=== PATIENT | male | born 2000 | race Caucasian/White ===

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

== ENCOUNTER 2020-11-26 13:55 | Emergency (ER) | payer OTHER ==
--- NOTE | 2020-11-26 15:33 | EDM.PDOC ---
ED HPI GENERAL MEDICAL PROBLEM - General Chief Complaint: Skin Complaint Stated Complaint: LT AMANDA INGROWN FINGERNAIL Time Seen by Provider: 11/26/20 14:19 Source of Information: Reports: Patient History Limitations: Reports: No Limitations - History of Present Illness INITIAL COMMENTS - FREE TEXT/NARRATIVE: HISTORY AND PHYSICAL: History of present illness: Patient is a 20-year-old male presenting to the ED with left index finger pain x3 days; worsening today. Patient states his pain is constant, nonradiating, and provoked with pressure. Patient states that he tried poking the area with a needle at home today but was unable to successfully alleviate any of his symptoms. Patient denies any other attempted treatment, including medications or compresses. Patient states that he is fully able to move the finger without difficulty. Patient denies fever, chills, chest pain, shortness of breath, or cough. Denies headache, neck stiff ness, change in vision, syncope, or near syncope. Denies nausea, vomiting, abdominal pain, diarrhea, constipation, or dysuria. Has not noted any blood in urine or stool. Patient has been eating and drinking appropriately. Review of systems: As per history of present illness and below otherwise all systems reviewed and negative. Past medical history: As per history of present illness and as reviewed below otherwise noncontribut ory. Surgical history: As per history of present illness and as reviewed below otherwise noncontributory. Social history: See social history for further information Family history: As per history of present illness and as reviewed below otherwise noncontributory. Physical exam: General: Patient is alert, oriented, and in no acute distress. Patient sitting comfortably on exam table. Vitals stable and reviewed by me. HEENT: Atraumatic, normocephalic, pupils equal and reactive bilaterally, negative for conjunctival pallor or scleral icterus, mucous membranes moist, TMs normal bilaterally, throat clear, neck supple, nontender, trachea midline. No drooling or trismus noted. No meningeal signs. No hot potato voice noted. Lungs: Clear to auscultation, breath sounds equal bilaterally, chest nontender. Heart: S1S2, regular rate and rhythm without overt murmur Abdomen: Soft, nondistended, nontender. Negative for masses or hepatosplenomegaly. Negative for costovertebral tenderness. Pelvis: Stable nontender. Genitourinary: Deferred. Rectal: Deferred. Skin: Intact, warm, dry. No lesions or rashes noted. Extremities: Paronychia of the left second finger nail with white blanching adjacent to the lateral nail of the 2nd digit. The area of edema/erythema does not extend beyond the lateral nailed. Full ROM of the digit without deficit. Radial pulse grossly intact with cap refill < 2 seconds. Otherwise, atraumatic, negative for cords or calf pain. Neurovascular unremarkable. No obvious deformity. Compartments are soft. Neuro: Awake, alert, oriented. Cranial nerves II through XII unremarkable. Cerebellum unremarkable. Motor and sensory unremarkable throughout. Exam nonfocal. Notes: Signs and symptoms that would prompt return to the ED discussed with patient. Discussed importance of follow-up with a primary care provider. Voices understanding and is agreeable to plan of care. Denies any further questions or concerns at this time. Diagnostics: Wound culture Therapeutics: I&D Prescription: Augmentin Impression: Paronychia of left index finger Plan: 1. Take medication as prescribed. You can alternate ibuprofen and Tylenol as directed for pain and discomfort. 2. Continue to monitor for signs of improving versus worsening infection as discussed. Follow-up with your primary care provider as discussed. Return to the ED as needed and as discussed. Definitive disposition and diagnosis as appropriate pending reevaluation and review of above. Left index Pain Score (Numeric/FACES): 7 - Related Data Allergies Allergy/AdvReac Type Severity Reaction Status Date / Time No Known Allergies Allergy Verified 11/26/20 14:17 Home Meds: Home Meds Albuterol [Proventil Neb Soln] 1 ampule NEB Q4HRRT PRN 05/15/14 [History] Cetirizine [ZyrTEC] 1 tab PO DAILY 05/15/14 [History] Ipratropium/Albuterol Sulfate [Combivent Respimat Inhal [place]] 4 gm IH Q4HR PRN #1 aer.w.adap 05/28/18 [Rx] Ipratropium/Albuterol Sulfate [Iprat-Albut 0.5-3(2.5) MG/3 ML] 3 ml IH QID PRN #1 box 05/28/18 [Rx] Amoxicillin/Potassium Clav [Augmentin 875-125 Tablet] 1 each PO BID 7 Days #14 tablet 11/26/20 [Rx] Past Medical History - Past Health History Medical/Surgical History: Denies Medical/Surgical History Respiratory History: Reports: Asthma Psychiatric History: Reports: Anxiety Social & Family History - Family History Family Medical History: No Pertinent Family History - Tobacco Use Tobacco Use Status *Q: Never Tobacco User - Caffeine Use Caffeine Use: Reports: None - Recreational Drug Use Recreational Drug Use: No ED ROS GENERAL - Review of Systems Review Of Systems: Comprehensive ROS is negative, except as noted in HPI. ED EXAM, SKIN/RASH Exam: See Below (see dictation) ED SKIN PROCEDURES - I&D Site: Lateral border of nail on of left second finger Skin Prep: Chlorhexidine (Hibiciens), Isopropyl Alcohol (Alcohol), Sterile Drape Local Anesthesia: Lidocaine: 1% Plain Local Anesthetic Volume: 5cc Area Incised With: 11 Blade Drainage: Purulent, Bloody, Small Amount Probed to Break Up Loculations: No Packed With: None Sterile Dressing: Adhesive Dressing Complications: No Course - Vital Signs Last Recorded V/S: Last Vital Signs Temp 97.5 F 11/26/20 15:54 Pulse 55 L 11/26/20 15:54 Resp 16 11/26/20 15:54 BP 136/70 11/26/20 15:54 Pulse Ox 99 11/26/20 15:54 - Orders/Labs/Meds Orders: Active Orders 24 hr Category Date Time Status CULTURE WOUND [RM] Stat Lab 11/26/20 15:10 Received Meds: Medications Discontinued Medications Generic Name Dose Route Start Last Admin Trade Name Sandra PRN Reason Stop Dose Admin Lidocaine HCl 5 ml 11/26/20 15:03 11/26/20 15:06 Xylocaine-Mpf 1% INJECT 11/26/20 15:04 5 ml ONETIME ONE Administration Departure - Departure Time of Disposition: 15:31 Disposition: Home, Self-Care 01 Clinical Impression: Paronychia - Discharge Information Prescriptions: Amoxicillin/Potassium Clav [Augmentin 875-125 Tablet] 1 each PO BID 7 Days #14 tablet Referrals: Cain Bolton MD [Primary Care Provider] - Forms: ED Department Discharge Additional Instructions: The following information is given to patients seen in the emergency department who are being discharged to home. This information is to outline your options for follow-up care. We provide all patients seen in our emergency department with a follow-up referral. The need for follow-up, as well as the timing and circumstances, are variable depending upon the specifics of your emergency department visit. If you don't have a primary care physician on staff, we will provide you with a referral. We always advise you to contact your personal physician following an emergency department visit to inform them of the circumstance of the visit and for follow-up with them and/or the need for any referrals to a consulting specialist. The emergency department will also refer you to a specialist when appropriate. This referral assures that you have the opportunity for follow-up care with a specialist. All of these measure are taken in an effort to provide you with optimal care, which includes your follow-up. Under all circumstances we always encourage you to contact your private physician who remains a resource for coordinating your care. When calling for follow-up care, please make the office aware that this follow-up is from your recent emergency room visit. If for any reason you are refused follow-up, please contact the [facility] Emergency Department at and asked to speak to the emergency department charge nurse. [facility] [address] [place] [address] [place] [address] 1. Take medication as prescribed. You can alternate ibuprofen and Tylenol as directed for pain and discomfort. 2. Continue to monitor for signs of improving versus worsening infection as di scussed. Follow-up with your primary care provider as discussed. Return to the ED as needed and as discussed. Sepsis Event Note (ED) - Evaluation Sepsis Screening Result: No Definite Risk - Focused Exam Vital Signs: Vital Signs Temp Pulse Resp BP Pulse Ox 11/26/20 15:54 97.5 F 55 L 16 136/70 99 11/26/20 14:18 97.7 F 75 17 146/73 H 98 - My Orders Last 24 Hours: My Active Orders 11/26/20 15:10 CULTURE WOUND [RM] Stat - Assessment/Plan Last 24 Hours: My Active Orders 11/26/20 15:10 CULTURE WOUND [RM] Stat
[2020-11-26 15:55] VITALS: BP 136/70; PULSE 55
== END 2020-11-26 15:55 | disposition home or self-care (01) ==
LOC: MW.ED 13:55
DX: L03.012 Cellulitis of left finger (principal); J45.909 Unspecified asthma, uncomplicated
CPT/HCPCS: 10060; 87070; 87077; 87186; 99283; 99283-25

== ENCOUNTER 2021-04-09 09:28 | Emergency (ER) | payer OTHER ==
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
[2021-04-09] MEDS ORDERED: Lidocaine 1% with EPINEPHrine 1:100,000 20 ML MDV INJECT ONE (09:42)
[2021-04-09] MEDS ORDERED: Lidocaine/EPINEPHrine/Tetracaine Soln 1 ML TOP ONE (10:14)
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
[2021-04-09 11:31] VITALS: BP 133/64; PULSE 51
== END 2021-04-09 11:34 | disposition home or self-care (01) ==
LOC: MW.ED 09:28
DX: S01.01XA Laceration without foreign body of scalp, initial encounter (principal); S01.81XA Laceration without foreign body of other part of head, initial encounter; S40.022A Contusion of left upper arm, initial encounter; S80.811A Abrasion, right lower leg, initial encounter; S00.511A Abrasion of lip, initial encounter; J45.909 Unspecified asthma, uncomplicated; Z79.899 Other long term (current) drug therapy; V86.59XA Driver of other special all-terrain or other off-road motor vehicle injured in nontraffic accident, initial encounter
CPT/HCPCS: 12002; 12011; 70450; 70450-26; 99284; 99284-25